=== PATIENT | male | born 1985 | race Caucasian/White ===

== ENCOUNTER → 2021-02-28 | Outpatient (CLI) | payer BC ==
--- NOTE | 2021-02-28 09:31 | Diagnostic Imaging Report ---
Exam: CT left hand without contrast. Date: February 28, 2021. Indication: 35-year-old male, crush injury of the hand one week ago. Swelling in the region of the first metacarpal phalangeal joint and posterior bump in the region. Comparison: None available. Technique: Axial CT images of the left hand were obtained without contrast. Coronal and sagittal reformats were obtained and provided. All CT scans use one or more of the following dose optimizing techniques: automated exposure control, MA and/or KvP adjustment based on patient size and exam type or iterative reconstruction. . Findings: There is no acute fracture. There is no subluxation or dislocation. There is no bone lesion. The joint spaces are well preserved. There is no bone erosion. There is no periosteal reaction. There is dorsal subcutaneous edema centered in the region of the metacarpals. There is no clearly identified focal fluid collection or mass on noncontrast imaging assessment. There is no identified radiopaque foreign body. Impression: 1. No acute osseous abnormality. 2. Nonspecific dorsal subcutaneous edema at the level of the metacarpals without identified focal fluid collection or mass on noncontrast imaging assessment. 3. Unremarkable joint evaluation. 4. No identified radiopaque foreign body. Dictated by: Dictated on workstation # [id number]
== END ==
LOC: RAD 09:00
PROVIDERS: ATTEND Nurse Practitioner Family
DX: S60.222D Contusion of left hand, subsequent encounter (principal); X58.XXXD Exposure to other specified factors, subsequent encounter
CPT/HCPCS: 73200